=== PATIENT | female | born 1970 ===

== ENCOUNTER → 2018-12-19 | Outpatient (CLI) | payer BC ==
--- NOTE | 2018-12-19 13:34 | Diagnostic Imaging Report ---
Radiographs of the right and left calcaneus HISTORY: Pain COMPARISON: None available. FINDINGS: Bones: No acute displaced fracture. Osseous alignment is within normal limits. Joints: Scattered degenerative change. No osseous erosion. Soft tissues: The soft tissues appear unremarkable. IMPRESSION: Scattered degenerative change. No osseous erosion. Signed by: Dr. Lalo Ellis M.D. on 12/19/2018 1:31 PM
== END ==
LOC: RAD 10:48
PROVIDERS: ATTEND Family Medicine
DX: M79.672 Pain in left foot (principal); M79.671 Pain in right foot; M89.8X7 Other specified disorders of bone, ankle and foot